=== PATIENT | female | born 1960 | race Caucasian/White ===

== ENCOUNTER 2016-06-18 08:33 | Day surgery (SDC) | payer BC ==
[2016-06-18] VITALS (35 sets, daily range): BP systolic 94–204; BP diastolic 50–91; PULSE 40–86; RESP 10–18; Ht 175.3 cm; Wt 86.3 kg
[~2016-06-18] VITALS: Ht 175.3 cm; Wt 86.3 kg
[~2016-06-18 08:33] MED LIST: LIDOCAINE 2% (SDV) 5 ML INJ ONE
[2016-06-18] MEDS ORDERED: TRAZ50TA18 PO (09:21)
--- NOTE | 2016-06-18 09:33 | RADRPT ---
PROCEDURE: XR Chest. CLINICAL INDICATION: chest pain, preop TECHNIQUE: Single frontal view of the chest was obtained COMPARISON: None FINDINGS: The heart and mediastinum are within normal limits. There is left lower lobe linear scarring. The lungs are otherwise clear. There is no pleural effusion or pneumothorax. RPTAT: AA IMPRESSION: No acute disease. Left lower lobe linear scarring. .Luis Castillo MD, MD Date Time Electronically viewed and signed by .Luis Castillo MD, on 06/18/2016 09:33 .S/
[2016-06-18 09:41] LABS: INR 0.9; PROTIME 12.1 Sec (12.2-14.2); PT RATIO 0.9
[2016-06-18 10:29] LABS: PARTIAL THROMBOPLASTIN TIME 24.9 Sec (25.0-35.0)
[2016-06-18] MEDS ORDERED: PROPOFOL 20 ML ONE (11:28)
[2016-06-18] MEDS ORDERED: MIDAZOLAM 1 MG/ML 2 ML INJ ONE (11:29)
[2016-06-18] MEDS ORDERED: ONDANSETRON 4 MG INJ IV PRN (11:30)
[2016-06-18] MEDS ORDERED: morphine 2 MG INJ IV PRN (11:30)
[2016-06-18] MEDS ORDERED: ACETAMINOPHEN 1000MG/100ML IV 100 ML IVPB PRN (11:30)
[2016-06-18] MEDS ORDERED: DEXAMETHASONE 4 MG/ML 1 ML INJ ONE (11:59)
[2016-06-18] MEDS ORDERED: ONDANSETRON 4 MG INJ ONE (11:59)
[2016-06-18] MEDS ORDERED: FAMOTIDINE 20 MG INJ ONE (11:59)
[2016-06-18] MEDS ORDERED: CEFAZOLIN 1 GM INJ ONE (12:06)
[2016-06-18] MEDS ORDERED: PHENYLephrine (100 MCG/ML) 5ML SYG ONE (12:16)
[2016-06-18] MEDS ORDERED: KETOROLAC 30 MG INJ ONE (13:14)
[2016-06-18] MEDS ORDERED: morphine 10 MG INJ ONE (13:15)
[2016-06-18] MEDS ORDERED: HYDROmorphONE (0.2 MG/ML) 10ML SYG IV PRN ×2 (13:30)
[2016-06-18] MEDS ORDERED: DIPHENHYDRAMINE 50 MG INJ IV PRN (13:30)
[2016-06-18] MEDS ORDERED: MEPERIDINE 25 MG INJ IV PRN (13:30)
[2016-06-18] MEDS ORDERED: NALOXONE (0.4 MG/ML) INJ ONE (13:46)
--- NOTE | 2016-06-18 14:10 | OPR ---
DATE OF OPERATION: 06/18/2016 PREOPERATIVE DIAGNOSIS: Invasive cancer, left breast. POSTOPERATIVE DIAGNOSIS: Invasive cancer, left breast. OPERATION PERFORMED: Left modified radical mastectomy. ANESTHESIA: General. ANESTHESIOLOGIST: Mingo Mas DO SURGEON: Tim Connor MD [employer] MACHINE OPERATOR: Chevy Aquino MD INDICATIONS FOR PROCEDURE: The patient is a 55-year-old female who presented with an extremely larg e left breast mass. It is unclear why she did not seek medical attention sooner. Subsequent workup including biopsy revealed an invasive cancer. The patient was counseled as to the need for a left m odified radical mastectomy. She consented and was scheduled for surgery. DESCRIPTION OF PROCEDURE: The patient was brought to the operating theater, placed under general en dotracheal tube anesthesia. The left breast and axillary regions were prepped and draped in usual s terile fashion. A planned elliptical incision was made widely around a large mass including nipple areolar complex and carried out with 15 blade scalpel. Subcutaneous tissue was dissected with caute ry. Skin edges were then elevated with Allis Pierce clamps and skin flaps were created first superio rly to the clavicle. This was used ____ by using cautery, then medially to the sternal border, infe riorly to the inframammary fold and laterally until the latissimus dorsi muscle was identified throu ghout its course. Mastectomy took place from medial to lateral at the border of the pectoralis narinder r muscle, the pectoralis minor muscle was identified. The clavipectoral fascia was incised with jimmie nt dissection along the chest wall. The long thoracic nerve was identified and kept out of harm's w ay. More superiorly, the axillary vein and the thoracodorsal neurovascular bundle were identified a nd kept out of harm's way. There appeared to be obvious metastatic disease consistent with the fact that preoperative axillary biopsy confirmed axillary metastasis. An extensive level 1 and level 2 l ymph node dissection then took place, taking great care not to injure the underlying neurovascular s tructures. Final connective tissue attachments to the latissimus dorsi muscle were then transected with cautery. Specimen was oriented and sent for permanent pathologic analysis. The wound was irri gated. Minimal bleeding was controlled with cautery. Two #10 flat Tommy-Gore drains were then b rought through the left mid axillary line, one was cut to size and laid within the axilla, the other was laid over the pectoralis major muscle, and the skin incision, both drains were secured in place with 2-0 nylon sutures in the standard fashion. The skin incision was reapproximated with skin sta ples. The patient tolerated procedure well. The estimated blood loss 50 mL. There were no complic ations and the patient was transported in stable condition to the recovery room where circumferentia l compression dressing was applied. Dictated By: TIM CONNOR MD TL/MACARIO Conf#: [id number] DID#: [id number] CC: CHEVY AQUINO MD;*EndCC*
[2016-06-18] MEDS ORDERED: hydrALAzine 20 MG INJ IV PRN (15:30)
--- NOTE | 2016-06-18 17:24 | HP ---
DATE OF ADMISSION: 06/18/2016 HISTORY OF PRESENT ILLNESS: The patient is a 55-year-old female with past medical history positive for hypertension, arthritis, anxiety and depression. Patient presented with large left breast mass. Subsequent workup including biopsy revealed invasive cancer of the left breast with axillary metas tasis. The patient was evaluated by Dr. Connor in surgical consultation. The patient was brought to the hospital and underwent left modified radical mastectomy. Postoperatively the patient experience d some significant pain and the patient will be admitted for further evaluation and management to mo dical/surgical floor. PAST MEDICAL HISTORY: Positive for hypertension, arthritis, anxiety and depression. PAST SURGICAL HISTORY: Patient denies having any surgeries in the past. FAMILY HISTORY: Unavailable due to the patient was adopted. SOCIAL HISTORY: Patient lives at home. Patient smokes 1 pack of cigarettes per day, drinks alcohol occasionally. Denies any illicit drug use. ALLERGIES: NO KNOWN ALLERGIES. HOME MEDICATIONS: Include trazodone 50 mg p.o. at bedtime. REVIEW OF SYSTEMS: A 12-point review of systems is negative unless what mentioned in the HPI. PHYSICAL ASSESSMENT: GENERAL: Well-developed, well-nourished female currently is awake, alert. VITAL SIGNS: Temperature is 98.7, heart rate is 76, blood pressure is 119/54, respiratory rate 14, oxygen saturation 92% on 4 liters nasal cannula. HEENT: Head is atraumatic, normocephalic. Pupils equal, round, reactive to light and accommodation . Oral mucosa is pink and moist. NECK: Supple, no cervical lymphadenopathy, no thyromegaly. LUNGS: Clear bilaterally. There is no rhonchi, wheezes, rales noted. NEUROLOGIC: Patient is status post surgery with a dry, clean and intact dressing and left axillary chest JPs. CARDIOVASCULAR: Normal S1, S2. No murmurs, gallops, clicks, rubs noted. ABDOMEN: Protuberant, soft, nondistended, nontender. Bowel sounds present. There is no guarding o r rebound tenderness. EXTREMITIES: There is no edema, clubbing, cyanosis. Pulses equal bilaterally 2+. SKIN: There is no rash, petechiae noted. NEUROLOGICAL: The patient is awake, alert and oriented x3. No focal deficits noted. Patient moves all extremities. LABORATORY DATA: On admission PT is 12.1, INR is 0.9, APTT is 24.9. IMAGING: Chest x-ray: No acute disease. Left lower lobe linear scarring. ASSESSMENT AND PLAN: 1. Invasive cancer of the left breast status post left modified radical mastectomy. We are going to continue Tylenol and Morphine p.r.n. for pain and Zofran p.r.n. for nausea. Monitor electrolytes. Incentive spirometer q.1 hour while patient is awake. Patient received perioperative antibiotics. Continue IV fluids. 2. Hypertension. The patient is currently normotensive. We will administer hydralazine p.r.n. for systolic blood pressure above 170. 3. Anxiety and depression. Sequential compression device for deep venous thrombosis prophylaxis. Pepcid for peptic ulcer disease prophylaxis. Continue to follow up surgical recommendations. [facility] recommendations based on clinical course. Plan of care discussed with Dr. Loja. Dictated By: [facility] for LADAN LOJA MD SR/NTS Conf#: [id number] DID#: [id number]
[2016-06-18] MEDS: D5W-0.45 NACL + KCL 20 MEQ 1,000 ML IV SCH ×2 (18:53→19:01)
[2016-06-19] MEDS: D5W-0.45 NACL + KCL 20 MEQ 1,000 ML IV SCH ×2 (02:45→11:25)
[2016-06-19 03:46] VITALS: BP 87/52; RESP 16
[2016-06-19 04:47] VITALS: BP 99/63
[2016-06-19 07:58] VITALS: BP 87/52; RESP 16
[2016-06-19 08:18] LABS: ADD SCAN DIFF NO
[2016-06-19 08:32] LABS: BASOPHILS % 0.1 % (0.0-2.0); EOSINOPHILS % 0.1 % (0.0-7.0); HEMATOCRIT 36.6 % (37.0-47.0); LYMPHOCYTES # 1.9 10^3/ul (0.8-2.9); LYMPHOCYTES % 20.6 % (15.0-51.0); MEAN CORPUSCULAR HEMOGLOBIN 28.6 pg (29.0-33.0); MEAN CORPUSCULAR HGB CONC 30.1 g/dl (32.0-37.0); MEAN CORPUSCULAR VOLUME 95.1 fl (82.0-101.0); MONOCYTE # 0.7 10^3/ul (0.3-0.9); MONOCYTES % 7.9 % (0.0-11.0); NEUTROPHIL # 6.4 10^3/ul (1.6-7.5); NEUTROPHILS % 71.1 % (39.0-77.0); PLATELET COUNT 164 10^3/UL (140-415); RED BLOOD COUNT 3.85 10^6/ul (4.20-5.40); RED CELL DISTRIBUTION WIDTH 13.2 % (11.5-14.5)
[2016-06-19 08:46] LABS: CALCIUM 8.2 mg/dl (8.4-10.2); CREATININE 0.79 mg/dl (0.44-1.00); POTASSIUM 4.6 mmol/L (3.5-5.1)
--- NOTE | 2016-06-19 21:45 | PN ---
DATE: Postop day #1 status post left modified radical mastectomy with axillary dissection for large cancer of left breast. SUBJECTIVE: Feels okay, no special complaint, was concerned about Tommy- Gore drains. OBJECTIVE: Vital signs 98.4, 66, 16, blood pressure 87/52, saturation 100% on 2 L nasal oxygen. Tommy-Gore drains, 2 of them which has drained 75 mL since operation, is somewhat bloody. ASSESSMENT AND PLAN: Status post left modified radical mastectomy with axillary dissection. The patient is stable. The patient was instructed how to manage the Tommy-Gore drains by myself and the nurse. The patient to go home today with [address] in [address], and cups will be supplied to measure the drainage every night and record it on a piece of paper and show it to Dr. Connor when she goes to the office. The patient to call Dr. Connor' office tomorrow and make appointment for followup. Pain medication will be supplied. Dictated By: KAY BARBOZA/MACARIO Conf#: [id number] DID#: [id number] MTDD
--- NOTE | 2016-06-19 22:03 | RADRPT ---
Vent Rate: 64 bpm RR Interval: 0 msec IN Interval: 146 msec QRS Duration: 102 msec QT Interval: 452 msec QTC Interval: 466 msec P-R-T Vancleave: 46 - 29 - 46 degrees Normal sinus rhythm Normal ECG Electronically Signed By: Aaron Hong [id number]
== END 2016-06-19 19:40 | disposition home or self-care (01) ==
LOC: SDS 08:33 → MS2 17:45 → SDS 06-19 19:40
PROVIDERS: ATTEND Surgery Surgical Oncology
DX: C50.912 Malignant neoplasm of unspecified site of left female breast (principal); I10 Essential (primary) hypertension; F41.8 Other specified anxiety disorders
CPT/HCPCS: 19307; 71010; 80048; 85025; 85610; 85730; 88307; 93005; J0131; J0690; J1100; J1885; J2175; J2250; J2270; J2310; J2405; J3010; J3480; J2370